=== PATIENT | male | born 1975 | race Asian ===

== ENCOUNTER → 2017-12-10 | Outpatient (CLI) | payer OTHER ==
[2017-12-10 08:10] LABS: microscopic required? NO
[2017-12-10 08:18] LABS: BASOPHIL % 0.6 % (0-2); PLATELET COUNT 187 x10^3mcL (130-400); RED CELL DISTRIBUTION WIDTH 13.3 % (11.5-14.5)
[2017-12-10 08:21] LABS: urine erythrocyte NEGATIVE (NEGATIVE)
[2017-12-10 08:25] LABS: FREE T4 0.97 ng/dL (0.76-1.46); FREE THYROXINE INDEX 1.9 ug/dL (1.4-4.5); T4(THYROXINE) 5.3 ug/dL (4.7-13.3)
[2017-12-10 08:27] LABS: T3 TOTAL 1.01 ng/mL
[2017-12-10 08:34] LABS: ALBUMIN 4.5 g/dL (3.4-5.0); ALKALINE PHOSPHATASE 59 U/L (46-116); ALT/SGPT 42 U/L (16-63); AST/SGOT 30 U/L (15-37); CARBON DIOXIDE 25.7 mmol/L (21-32); CHLORIDE SERUM 105 mmol/L (98-107); CHOLESTEROL 182 mg/dL (<200); CHOLESTEROL/HDL RATIO 3.1; GFR1 > 60 mL/min; GLUCOSE SERUM 93 mg/dL (74-106); HDL CHOLESTEROL 59 mg/dL (40-60); POTASSIUM SERUM 3.8 mmol/L (3.5-5.1); SODIUM SERUM 141 mmol/L (136-145); TOTAL PROTEIN, SERUM 8.5 g/dL (6.4-8.2); TRIGLYCERIDES 44 mg/dL (<150)
== END | disposition home or self-care (01) ==
LOC: LB 07:39
DX: I10 Essential (primary) hypertension (principal)
CPT/HCPCS: 82652; 84439

== ENCOUNTER → 2019-12-18 | Outpatient (CLI) | payer OTHER | END | disposition home or self-care (01) | LOC: LB 16:51 | DX: I10 Essential (primary) hypertension (principal) ==

== ENCOUNTER → 2019-12-25 | Outpatient (CLI) | payer OTHER ==
[2019-12-25 11:56] LABS: ALBUMIN 4.3 g/dL (3.4-5.0); ALKALINE PHOSPHATASE 65 U/L (46-116); ALT/SGPT 34 U/L (16-63); AST/SGOT 22 U/L (15-37); BILIRUBIN TOTAL 0.82 mg/dL (0.20-1.00); CALCIUM 8.9 mg/dL (8.5-10.1); CARBON DIOXIDE 30.1 mmol/L (21-32); CHLORIDE SERUM 104 mmol/L (98-107); CHOLESTEROL 191 mg/dL (<200); CHOLESTEROL/HDL RATIO 3.4; GFR1 > 60 mL/min; GLUCOSE SERUM 91 mg/dL (74-106); HDL CHOLESTEROL 56 mg/dL (40-60); POTASSIUM SERUM 4.1 mmol/L (3.5-5.1); SODIUM SERUM 139 mmol/L (136-145); TOTAL PROTEIN, SERUM 7.5 g/dL (6.4-8.2); TRIGLYCERIDES 75 mg/dL (<150)
[2019-12-25 13:11] LABS: BASOPHIL % 0.3 % (0-2); PLATELET COUNT 180 x10^3mcL (130-400); RED CELL DISTRIBUTION WIDTH 13.1 % (11.5-14.5)
== END | disposition home or self-care (01) ==
LOC: LB 11:05
DX: I10 Essential (primary) hypertension (principal)